=== PATIENT | female | born 1970 | race Caucasian/White ===

== ENCOUNTER 2018-11-19 06:00 | Emergency (ER) | payer OTHER ==
[2018-11-19] MEDS: LIDOCAINE 1% (MPF) 5 ML VIAL INJ (06:52)
== END 2018-11-19 08:56 | disposition home or self-care (01) ==
LOC: FTE 06:00
DX: S01.412A Laceration without foreign body of left cheek and temporomandibular area, initial encounter (principal); I10 Essential (primary) hypertension; Y04.2XXA Assault by strike against or bumped into by another person, initial encounter
CPT/HCPCS: 12011; 70486; 99284-25

== ENCOUNTER 2018-11-25 09:51 | Emergency (ER) | payer OTHER ==
[2018-11-25] MEDS: morphine 4 MG/ML VIAL IV (10:45)
[2018-11-25] MEDS: ONDANSETRON 4 MG INJ IV (10:45)
[2018-11-25] MEDS: SOD CHLORIDE 0.9% 1,000 ML IV (10:45)
[2018-11-25 10:47] LABS: ADD MAN DIFF? NO
[2018-11-25 10:49] LABS: BASOPHILS % 0.7 % (0.0-2.0); EOSINOPHILS % 0.5 % (0.0-7.0); HEMOGLOBIN 13.3 g/dl (12.0-16.0); LYMPHOCYTES # 1.4 10^3/ul (0.8-2.9); LYMPHOCYTES % 22.5 % (15.0-51.0); MEAN CORPUSCULAR HGB CONC 33.3 g/dl (32.0-37.0); MEAN CORPUSCULAR VOLUME 87.3 fl (82.0-101.0); MEAN PLATELET VOLUME 10.2 fl (7.4-10.4); MONOCYTE # 0.3 10^3/ul (0.3-0.9); MONOCYTES % 5.3 % (0.0-11.0); NEUTROPHIL # 4.3 10^3/ul (1.6-7.5); NEUTROPHILS % 70.8 % (39.0-77.0); PLATELET COUNT 231 10^3/UL (140-415); RED BLOOD COUNT 4.58 10^6/ul (4.20-5.40); RED CELL DISTRIBUTION WIDTH 12.9 % (11.5-14.5)
[2018-11-25 11:06] LABS: ANION GAP 8 (5-13); BLOOD UREA NITROGEN 10 mg/dl (7-20); CALCIUM 9.7 mg/dl (8.4-10.2); CARBON DIOXIDE 30 mmol/L (21-31); CHLORIDE 103 mmol/L (97-110); CREATININE 0.61 mg/dl (0.44-1.00); Estimated GFR > 60 mL/min (>60); GLUCOSE 109 mg/dl (70-220); POTASSIUM 3.9 mmol/L (3.5-5.1); SODIUM 141 mmol/L (135-144)
[2018-11-25 11:08] LABS: INR 0.91; PROTIME 12.4 Sec (11.9-14.9)
[2018-11-25 11:09] LABS: PARTIAL THROMBOPLASTIN TIME 29.1 Sec (23.0-35.0)
[2018-11-25] MEDS: SOD CHLORIDE 0.9% 100 ML (11:09)
[2018-11-25] MEDS: IOHEXOL 300MG/ML 150 ML BTL (11:09)
== END 2018-11-25 13:17 | disposition home or self-care (01) ==
LOC: E/R 13:17
DX: S20.212A Contusion of left front wall of thorax, initial encounter (principal); I10 Essential (primary) hypertension; V13.4XXA Pedal cycle driver injured in collision with car, pick-up truck or van in traffic accident, initial encounter
CPT/HCPCS: 71260; 74177; 80048; 85025; 85610; 85730; 96374; 96375; 99285-25